=== PATIENT | female | born 1985 | race Caucasian/White ===

== ENCOUNTER 2017-11-15 21:55 | Emergency (ER) | payer MEDICAID, OTHER ==
[2017-11-15 22:46] LABS: URINE BLOOD (Dip) POC Trace-lysed (NEGATIVE); URINE GLUCOSE (Dip) POC Negative (NEGATIVE); URINE KETONES (Dip) POC 1+ (NEGATIVE); URINE LEUKOCYTE EST (Dip) POC Negative (NEGATIVE); URINE NITRITE (Dip) POC Negative (NEGATIVE); URINE TOTAL PROTEIN POC Negative (NEGATIVE)
[2017-11-15] MEDS: IBUPROFEN 800 MG TAB PO (22:53)
== END 2017-11-15 23:22 | disposition home or self-care (01) ==
LOC: FTE 21:55
DX: B34.9 Viral infection, unspecified (principal)
CPT/HCPCS: 71045; 81003; 81025; 99283-25

== ENCOUNTER 2017-11-18 20:03 | Inpatient (IN) | payer MEDICAID ==
[2017-11-18] MEDS: SODIUM CHLORIDE 0.9% 1L BAG IV* (20:41)
[2017-11-18] MEDS: CEFEPIME 2GM/50 ML (PMX) 50 ML IVPB (20:44)
[2017-11-18 20:48] LABS: WHITE BLOOD COUNT 4.5 10^3/ul (4.8-10.8)
[2017-11-18 20:48] LABS: ABNORMAL IP MESSAGE 1; HEMATOCRIT 36.3 % (37.0-47.0); HEMOGLOBIN 12.4 g/dl (12.0-16.0); MEAN CORPUSCULAR HEMOGLOBIN 29.2 pg (29.0-33.0); MEAN CORPUSCULAR HGB CONC 34.2 g/dl (32.0-37.0); MEAN CORPUSCULAR VOLUME 85.6 fl (82.0-101.0); MEAN PLATELET VOLUME 10.5 fl (7.4-10.4); PLATELET COUNT 116 10^3/UL (140-415); RED BLOOD COUNT 4.24 10^6/ul (4.20-5.40); RED CELL DISTRIBUTION WIDTH 13.4 % (11.5-14.5)
[2017-11-18 21:02] LABS: LACTIC ACID 1.3 mmol/L (0.5-2.0)
[2017-11-18 21:03] LABS: ALANINE AMINOTRANSFERASE 153 IU/L (13-69); ALBUMIN 3.5 g/dl (3.3-4.9); ALBUMIN/GLOBULIN RATIO 1.06; ALKALINE PHOSPHATASE 163 IU/L (42-121); ANION GAP 12 (8-16); ASPARTATE AMINO TRANSFERASE 185 IU/L (15-46); BILIRUBIN,INDIRECT 0.4 mg/dl (0-1.1); BILIRUBIN,TOTAL 0.4 mg/dl (0.2-1.3); BLOOD UREA NITROGEN 8 mg/dl (7-20); CALCIUM 8.5 mg/dl (8.4-10.2); CARBON DIOXIDE 22 mmol/L (21-31); CHLORIDE 103 mmol/L (97-110); CREATININE 0.61 mg/dl (0.44-1.00); GLUCOSE 131 mg/dl (70-220); POTASSIUM 3.8 mmol/L (3.5-5.1); SODIUM 133 mmol/L (135-144); TOTAL PROTEIN 6.8 g/dl (6.1-8.1)
[2017-11-18 21:07] LABS: POSITIVE DIFF @See below
[2017-11-18 21:08] LABS: ADD UMIC YES; UR ASCORBIC ACID NEGATIVE (NEGATIVE); UR BACTERIA FEW /HPF (NONE SEEN); UR BILIRUBIN (Dip) NEGATIVE (NEGATIVE); UR BLOOD (Dip) 1+ mg/dL (NEGATIVE); UR CLARITY CLOUDY (CLEAR); UR COLOR YELLOW (YELLOW); UR GLUCOSE (Dip) NEGATIVE (NEGATIVE); UR KETONES (Dip) NEGATIVE (NEGATIVE); UR LEUKOCYTE ESTERASE (Dip) NEGATIVE Leu/ul (NEGATIVE); UR MUCUS FEW /HPF (NONE SEEN); UR NITRITE (Dip) NEGATIVE (NEGATIVE); UR RBC 3 /HPF (0-5); UR SPECIFIC GRAVITY (Dip) 1.014 (1.003-1.030); UR SQUAMOUS EPITHELIAL CELL MODERATE /HPF (FEW); UR TOTAL PROTEIN (Dip) 1+ mg/dl (NEGATIVE); UR UROBILINOGEN (Dip) 2+ mg/dL (NEGATIVE); UR WBC 3 /HPF (0-5)
[2017-11-18 21:09] LABS: ADD MAN DIFF? YES
[2017-11-18 22:13] LABS: BAND NEUTROPHILS #M 2.3 10^3/ul (0.0-0.6); BAND NEUTROPHILS % (M) 52 % (0-4); GIANT THROMBO% (M) 1 % (0-0); LYMPHOCYTES #M 0.4 10^3/ul (0.8-2.9); LYMPHOCYTES % (M) 11 % (15-51); MONOCYTES % (M) 2 % (0-11); MYELOCYTES % (M) 1 % (0-0); PLATELET ESTIMATE DECREASED; SEG NEUT #M 1.6 10^3/ul (1.6-7.5); SEGMENTED NEUTROPHILS (M) % 34 % (39-77); SMUDGE%M 58 % (0-0)
[2017-11-18] MEDS: KETOROLAC 30 MG INJ IV (22:16)
[2017-11-18] MEDS: ACETAMINOPHEN 325 MG TAB PO (22:16)
[2017-11-18] MEDS: AZITHROMYCIN 250 MG TAB PO (22:56)
[2017-11-18] MEDS ORDERED: DOCUSATE SODIUM 100 MG CAP PO (23:00)
[2017-11-18] MEDS ORDERED: NACL 0.9% 3 ML SYG IV (23:00)
[2017-11-18] MEDS ORDERED: BISACODYL (EC) 5 MG TAB PO (23:00)
[2017-11-18] MEDS ORDERED: morphine 2 MG INJ IV (23:00)
[2017-11-18 23:25] LABS: HAAIG REFLEX REFLEX FILED
[2017-11-18] MEDS ORDERED: VANCOMYCIN IV PER PHARMACY XX (23:30)
[2017-11-18] MEDS: SOD CHLORIDE 0.9% 500 ML IV (23:45)
[2017-11-18 23:47] LABS: TROPONIN-I < 0.012 ng/ml (0.000-0.120)
[2017-11-19 00:04] LABS: HEPATITIS B SURFACE ANTIGEN NEGATIVE (NEGATIVE)
[2017-11-19 00:21] LABS: HEPATITIS B CORE ANTIBODY NEGATIVE (NEGATIVE); HEPATITIS C VIRAL ANTIBODY NEGATIVE (NEGATIVE)
[2017-11-19] MEDS: SOD CHLORIDE 0.9% 1,000 ML IV ×5 (00:56→16:41)
[2017-11-19] MEDS ORDERED: NORepinephrine 8MG/250 ML (PMX 250 ML IV (01:00)
[2017-11-19] MEDS: PIPER-TAZO 3.375 GM IV (PMX) 100 ML IVPB ×4 (02:10→17:40)
[2017-11-19 02:16] LABS: HEPATITIS B SURFACE ANTIBODY NEGATIVE (NEGATIVE)
[2017-11-19] MEDS: LIDOCAINE 1% (MPF) 5 ML VIAL SC (03:00)
[2017-11-19] MEDS: VANCOMYCIN 1 GM in 250 ML IVPB (03:12)
[2017-11-19 05:50] LABS: ABNORMAL IP MESSAGE 1; HEMATOCRIT 32.3 % (37.0-47.0); MEAN CORPUSCULAR HEMOGLOBIN 29.4 pg (29.0-33.0); MEAN CORPUSCULAR HGB CONC 34.1 g/dl (32.0-37.0); MEAN CORPUSCULAR VOLUME 86.4 fl (82.0-101.0); MEAN PLATELET VOLUME 10.4 fl (7.4-10.4); PLATELET COUNT 98 10^3/UL (140-415); RED BLOOD COUNT 3.74 10^6/ul (4.20-5.40); RED CELL DISTRIBUTION WIDTH 13.7 % (11.5-14.5)
[2017-11-19 05:53] LABS: ADD MAN DIFF? YES; POSITIVE DIFF @See below
[2017-11-19] MEDS: ACETAMINOPHEN 325 MG TAB PO ×3 (06:19→22:49)
[2017-11-19 06:28] LABS: LACTIC ACID 1.1 mmol/L (0.5-2.0)
[2017-11-19 06:31] LABS: ALANINE AMINOTRANSFERASE 184 IU/L (13-69); ALBUMIN 2.4 g/dl (3.3-4.9); ALBUMIN/GLOBULIN RATIO 0.85; ALKALINE PHOSPHATASE 134 IU/L (42-121); ANION GAP 11 (8-16); ASPARTATE AMINO TRANSFERASE 244 IU/L (15-46); BILIRUBIN,INDIRECT 0.3 mg/dl (0-1.1); BILIRUBIN,TOTAL 0.4 mg/dl (0.2-1.3); BLOOD UREA NITROGEN 4 mg/dl (7-20); CALCIUM 6.8 mg/dl (8.4-10.2); CARBON DIOXIDE 19 mmol/L (21-31); CHLORIDE 112 mmol/L (97-110); CHOL/HDL RATIO 3.9 RATIO; CHOLESTEROL 75 mg/dl (100-200); CREATININE 0.52 mg/dl (0.44-1.00); GLUCOSE 100 mg/dl (70-220); HDL CHOLESTEROL 19 mg/dl (34-82); LDL CHOLESTEROL,CALCULATED 35 mg/dl; MAGNESIUM 1.4 mg/dl (1.7-2.5); POTASSIUM 3.6 mmol/L (3.5-5.1); SODIUM 138 mmol/L (135-144); TOTAL PROTEIN 5.2 g/dl (6.1-8.1); TRIGLYCERIDES 105 mg/dl (0-149)
[2017-11-19 06:46] LABS: HEMOGLOBIN A1C 5.8 % (0-5.9)
[2017-11-19] MEDS: SOD CHLORIDE 0.9% 500 ML IV (07:10)
[2017-11-19 07:24] LABS: ANISOCYTOSIS 1+ (0-0); BAND NEUTROPHILS #M 3.8 10^3/ul (0.0-0.6); BAND NEUTROPHILS % (M) 55 % (0-4); BASOPHILS % (M) 1 % (0-2); GIANT THROMBO% (M) 1 % (0-0); LYMPHOCYTES #M 0.4 10^3/ul (0.8-2.9); LYMPHOCYTES % (M) 7 % (15-51); MONOCYTE #M 0.2 10^3/ul (0.3-0.9); MONOCYTES % (M) 3 % (0-11); PLATELET ESTIMATE DECREASED; POIKILOCYTOSIS 2+ (0-0); REACTIVE LYMPHOCYTES #M 0.2 10^3/ul (0.0-0.0); REACTIVE LYMPHOCYTES% (M) 3 % (0-0); SEG NEUT #M 2.4 10^3/ul (1.6-7.5); SEGMENTED NEUTROPHILS (M) % 31 % (39-77); SMUDGE%M 2 % (0-0)
[2017-11-19] MEDS: MAGNESIUM SULFATE 2 GM/50 ML 50 ML IVPB (10:43)
[2017-11-19] MEDS ORDERED: VANCOMYCIN 750 MG in SOD CHLORIDE 0.9% 150 ML IVPB ×2 (11:00→16:00)
[2017-11-19] MEDS: DOCUSATE SODIUM 100 MG CAP PO ×2 (11:10→22:49)
[2017-11-19] MEDS: CALCIUM GLUCONATE 10% 1 GM in DEXTROSE 5% 100 ML IVPB (13:13)
[2017-11-19] MEDS: FISH OIL 1,000 MG CAP PO (21:26)
[2017-11-19] MEDS ORDERED: VANCOMYCIN IV PER PHARMACY XX (23:00)
[2017-11-19] MEDS: IBUPROFEN 600 MG TAB PO (23:25)
[2017-11-20] MEDS: PIPER-TAZO 3.375 GM IV (PMX) 100 ML IVPB ×4 (00:30→17:58)
[2017-11-20] MEDS: VANCOMYCIN 750 MG in SOD CHLORIDE 0.9% 150 ML IVPB ×3 (01:02→18:23)
[2017-11-20] MEDS: SOD CHLORIDE 0.9% 1,000 ML IV ×2 (04:41→14:40)
[2017-11-20 06:00] LABS: WHITE BLOOD COUNT 5.8 10^3/ul (4.8-10.8)
[2017-11-20 06:00] LABS: ABNORMAL IP MESSAGE 1; HEMATOCRIT 31.5 % (37.0-47.0); MEAN CORPUSCULAR HEMOGLOBIN 29.9 pg (29.0-33.0); MEAN CORPUSCULAR HGB CONC 34.9 g/dl (32.0-37.0); MEAN CORPUSCULAR VOLUME 85.6 fl (82.0-101.0); MEAN PLATELET VOLUME 10.7 fl (7.4-10.4); PLATELET COUNT 97 10^3/UL (140-415); RED BLOOD COUNT 3.68 10^6/ul (4.20-5.40)
[2017-11-20 06:02] LABS: ADD MAN DIFF? YES; POSITIVE DIFF @See below
[2017-11-20 06:19] LABS: IRON 26 ug/dl (35-150)
[2017-11-20 06:28] LABS: % IRON SATURATION 12 % SAT (22-52); TOTAL IRON BINDING CAPACITY 225 ug/dl (241-421)
[2017-11-20 06:34] LABS: ALANINE AMINOTRANSFERASE 317 IU/L (13-69); ALBUMIN 2.3 g/dl (3.3-4.9); ALBUMIN/GLOBULIN RATIO 0.88; ALKALINE PHOSPHATASE 115 IU/L (42-121); ANION GAP 7 (8-16); ASPARTATE AMINO TRANSFERASE 424 IU/L (15-46); BILIRUBIN,INDIRECT 0.3 mg/dl (0-1.1); BILIRUBIN,TOTAL 0.3 mg/dl (0.2-1.3); BLOOD UREA NITROGEN 5 mg/dl (7-20); CALCIUM 7.4 mg/dl (8.4-10.2); CARBON DIOXIDE 22 mmol/L (21-31); CHLORIDE 111 mmol/L (97-110); GLUCOSE 92 mg/dl (70-220); MAGNESIUM 1.8 mg/dl (1.7-2.5); POTASSIUM 3.4 mmol/L (3.5-5.1); SODIUM 137 mmol/L (135-144); TOTAL PROTEIN 4.9 g/dl (6.1-8.1)
[2017-11-20 07:54] LABS: ANISOCYTOSIS 2+ (0-0); BAND NEUTROPHILS #M 2.2 10^3/ul (0.0-0.6); BAND NEUTROPHILS % (M) 38 % (0-4); LYMPHOCYTES #M 0.6 10^3/ul (0.8-2.9); LYMPHOCYTES % (M) 11 % (15-51); MONOCYTE #M 0.2 10^3/ul (0.3-0.9); MONOCYTES % (M) 4 % (0-11); PLATELET ESTIMATE DECREASED; POIKILOCYTOSIS 3+ (0-0); POLYCHROMASIA 3+ (0-0); REACTIVE LYMPHOCYTES #M 0.2 10^3/ul (0.0-0.0); REACTIVE LYMPHOCYTES% (M) 5 % (0-0); SEG NEUT #M 2.6 10^3/ul (1.6-7.5); SEGMENTED NEUTROPHILS (M) % 42 % (39-77); SMUDGE%M 2 % (0-0)
[2017-11-20] MEDS: FISH OIL 1,000 MG CAP PO ×2 (08:08→20:23)
[2017-11-20] MEDS: POTASSIUM CHLORIDE (SR) 20 MEQ TAB PO ×2 (08:09→11:02)
[2017-11-20 09:05] LABS: FOLATE 10.2 ng/ml (2.8-20.0)
[2017-11-20] MEDS ORDERED: ALBUTEROL 0.083% (NEB) 2.5 MG/3 ML AMP HHN (10:30)
[2017-11-20 10:39] LABS: LIPASE 112 U/L (23-300)
[2017-11-20] MEDS: DOCUSATE SODIUM 100 MG CAP PO ×3 (11:00→22:54)
[2017-11-20] MEDS: ACETAMINOPHEN 325 MG TAB PO ×2 (11:27→20:23)
[2017-11-20] MEDS: SOD CHLORIDE 0.9% 500 ML IV (12:37)
[2017-11-20 13:05] LABS: HIV 1&2 ANTIBODY NEGATIVE (NEGATIVE)
[2017-11-20] MEDS: LEVOFLOXACIN 500MG/D5W (PMX) 100 ML IVPB (13:19)
[2017-11-20] MEDS: POTASSIUM CHLORIDE 100 ML IVPB (14:40)
[2017-11-20] MEDS ORDERED: morphine LIQ (10 MG/5 ML) CUP PO (15:30)
[2017-11-20] MEDS: SOD FERRIC GLUC COMPLX 125 MG in SOD CHLORIDE 0.9% 100 ML IVPB (16:44)
[2017-11-21 00:07] LABS: VANCOMYCIN,TROUGH 9.6 ug/ml (10.0-20.0)
[2017-11-21] MEDS: VANCOMYCIN 1 GM 250 ML IVPB ×3 (00:27→16:37)
[2017-11-21] MEDS: PIPER-TAZO 3.375 GM IV (PMX) 100 ML IVPB ×4 (00:28→17:38)
[2017-11-21] MEDS: SOD CHLORIDE 0.9% 1,000 ML IV ×2 (00:52→11:29)
[2017-11-21] MEDS: SOD CHLORIDE 0.9% 100 ML (04:12)
[2017-11-21] MEDS: IOHEXOL 300MG/ML 150 ML BTL (04:22)
[2017-11-21 06:27] LABS: WHITE BLOOD COUNT 7.6 10^3/ul (4.8-10.8)
[2017-11-21 06:27] LABS: HEMOGLOBIN 11.3 g/dl (12.0-16.0); MEAN CORPUSCULAR HEMOGLOBIN 30.1 pg (29.0-33.0); MEAN CORPUSCULAR HGB CONC 35.3 g/dl (32.0-37.0); MEAN CORPUSCULAR VOLUME 85.3 fl (82.0-101.0); MEAN PLATELET VOLUME 10.8 fl (7.4-10.4); PLATELET COUNT 107 10^3/UL (140-415); RED BLOOD COUNT 3.75 10^6/ul (4.20-5.40); RED CELL DISTRIBUTION WIDTH 14.2 % (11.5-14.5)
[2017-11-21 06:36] LABS: ADD MAN DIFF? YES; POSITIVE DIFF @See below
[2017-11-21 06:38] LABS: ALANINE AMINOTRANSFERASE 309 IU/L (13-69); ALBUMIN 2.5 g/dl (3.3-4.9); ALBUMIN/GLOBULIN RATIO 0.83; ALKALINE PHOSPHATASE 126 IU/L (42-121); ANION GAP 13 (8-16); ASPARTATE AMINO TRANSFERASE 365 IU/L (15-46); BILIRUBIN,INDIRECT 0.3 mg/dl (0-1.1); BILIRUBIN,TOTAL 0.3 mg/dl (0.2-1.3); BLOOD UREA NITROGEN 5 mg/dl (7-20); CALCIUM 8.2 mg/dl (8.4-10.2); CARBON DIOXIDE 23 mmol/L (21-31); CHLORIDE 105 mmol/L (97-110); CREATININE 0.52 mg/dl (0.44-1.00); GLUCOSE 82 mg/dl (70-220); POTASSIUM 3.5 mmol/L (3.5-5.1); SODIUM 137 mmol/L (135-144); TOTAL PROTEIN 5.5 g/dl (6.1-8.1)
[2017-11-21 07:58] LABS: BAND NEUTROPHILS #M 1.2 10^3/ul (0.0-0.6); BAND NEUTROPHILS % (M) 17 % (0-4); LYMPHOCYTES #M 0.6 10^3/ul (0.8-2.9); LYMPHOCYTES % (M) 8 % (15-51); MONOCYTE #M 0.3 10^3/ul (0.3-0.9); MONOCYTES % (M) 5 % (0-11); PLATELET ESTIMATE DECREASED; SEG NEUT #M 5.4 10^3/ul (1.6-7.5); SEGMENTED NEUTROPHILS (M) % 70 % (39-77); SMUDGE%M 25 % (0-0)
[2017-11-21] MEDS: FISH OIL 1,000 MG CAP PO ×2 (08:28→21:33)
[2017-11-21] MEDS: DOCUSATE SODIUM 100 MG CAP PO ×2 (11:00→23:00)
[2017-11-21] MEDS: LEVOFLOXACIN 500MG/D5W (PMX) 100 ML IVPB (11:29)
[2017-11-21] MEDS: ACETAMINOPHEN 325 MG TAB PO (11:37)
[2017-11-21] MEDS: VORICONAZOLE 200 MG TAB PO ×2 (13:15→21:33)
[2017-11-21 13:16] LABS: INR 0.96; PROTIME 12.9 Sec (11.9-14.9)
[2017-11-21 13:17] LABS: PARTIAL THROMBOPLASTIN TIME 35.7 Sec (25.0-35.0)
[2017-11-21] MEDS: SOD FERRIC GLUC COMPLX 125 MG in SOD CHLORIDE 0.9% 100 ML IVPB (16:37)
[2017-11-22] MEDS: PIPER-TAZO 3.375 GM IV (PMX) 100 ML IVPB ×4 (00:32→19:58)
[2017-11-22] MEDS: SOD CHLORIDE 0.9% 1,000 ML IV ×4 (00:34→21:59)
[2017-11-22] MEDS: VANCOMYCIN 1 GM 250 ML IVPB ×2 (01:34→08:05)
[2017-11-22 05:01] LABS: AADO2 Arterial 587.5 mmHg (7.0-24.0); Allen Test ACCEPTAB; Arterial Base Excess -2.2 mmol/L (-3.0-3); Arterial Blood Gas Oxygen Sat 96.3 mmHG (95.0-98.0); Arterial COHb 0.2 % (0.0-3.0); Arterial Fraction of Oxyhgb 95.9 % (93.0-99.0); Arterial HCO3 22.1 mmol/L (22.0-26.0); Arterial MetHb 0.2 % (0.0-1.5); Arterial pCO2 36.1 mmhg (35-45); MODE MASK - NRB; Site Right Radial
[2017-11-22 05:23] LABS: ADD MAN DIFF? NO
[2017-11-22 05:27] LABS: BASOPHILS % 0.1 % (0.0-2.0); HEMATOCRIT 29.9 % (37.0-47.0); HEMOGLOBIN 10.2 g/dl (12.0-16.0); LYMPHOCYTES # 1.9 10^3/ul (0.8-2.9); LYMPHOCYTES % 24.7 % (15.0-51.0); MEAN CORPUSCULAR HEMOGLOBIN 28.8 pg (29.0-33.0); MEAN CORPUSCULAR HGB CONC 34.1 g/dl (32.0-37.0); MEAN CORPUSCULAR VOLUME 84.5 fl (82.0-101.0); MEAN PLATELET VOLUME 10.7 fl (7.4-10.4); MONOCYTE # 0.4 10^3/ul (0.3-0.9); MONOCYTES % 5.6 % (0.0-11.0); NEUTROPHIL # 5.4 10^3/ul (1.6-7.5); NEUTROPHILS % 68.8 % (39.0-77.0); PLATELET COUNT 135 10^3/UL (140-415); RED BLOOD COUNT 3.54 10^6/ul (4.20-5.40); RED CELL DISTRIBUTION WIDTH 14.4 % (11.5-14.5)
[2017-11-22 05:27] LABS: WHITE BLOOD COUNT 7.9 10^3/ul (4.8-10.8)
[2017-11-22 07:53] LABS: VANCOMYCIN,TROUGH 8.8 ug/ml (10.0-20.0)
[2017-11-22] MEDS: VORICONAZOLE 200 MG TAB PO ×2 (08:05→21:49)
[2017-11-22] MEDS: FISH OIL 1,000 MG CAP PO ×2 (08:05→21:49)
[2017-11-22] MEDS: LEVOFLOXACIN 500MG/D5W (PMX) 100 ML IVPB (10:51)
[2017-11-22] MEDS: DOCUSATE SODIUM 100 MG CAP PO ×2 (11:00→21:55)
[2017-11-22] MEDS: ALBUTEROL/IPRATROPIUM (NEB) 3 ML AMP HHN ×2 (13:37→20:33)
[2017-11-22] MEDS ORDERED: VANCOMYCIN 1.5 GM in SOD CHLORIDE 0.9% 250 ML IVPB (16:00)
[2017-11-22] MEDS: SOD FERRIC GLUC COMPLX 125 MG in SOD CHLORIDE 0.9% 100 ML IVPB (17:19)
[2017-11-22] MEDS: DOXYCYCLINE 100 MG in SOD CHLORIDE 0.9% 250 ML IVPB (21:49)
[2017-11-22] MEDS ORDERED: VANCOMYCIN IV PER PHARMACY XX (22:30)
[2017-11-22] MEDS ORDERED: CEFTRIAXONE 1,000 MG in SOD CHLORIDE 0.9% 50 ML IVPB (22:30)
[2017-11-22] MEDS: CEFTRIAXONE 1 GM/50 ML (PMX) 50 ML IVPB (23:37)
[2017-11-23] MEDS: VANCOMYCIN 1 GM 250 ML IVPB ×2 (00:11→08:07)
[2017-11-23] MEDS: ALBUTEROL/IPRATROPIUM (NEB) 3 ML AMP HHN ×4 (01:20→19:52)
[2017-11-23] MEDS: SOD CHLORIDE 0.9% 1,000 ML IV ×3 (02:52→22:43)
[2017-11-23 06:25] LABS: ADD MAN DIFF? NO
[2017-11-23 06:59] LABS: WHITE BLOOD COUNT 6.4 10^3/ul (4.8-10.8)
[2017-11-23 06:59] LABS: BASOPHILS % 0.3 % (0.0-2.0); EOSINOPHILS % 0.2 % (0.0-7.0); HEMATOCRIT 28.2 % (37.0-47.0); HEMOGLOBIN 9.7 g/dl (12.0-16.0); LYMPHOCYTES # 2.4 10^3/ul (0.8-2.9); LYMPHOCYTES % 37.9 % (15.0-51.0); MEAN CORPUSCULAR HEMOGLOBIN 28.9 pg (29.0-33.0); MEAN CORPUSCULAR HGB CONC 34.4 g/dl (32.0-37.0); MEAN CORPUSCULAR VOLUME 83.9 fl (82.0-101.0); MEAN PLATELET VOLUME 10.3 fl (7.4-10.4); MONOCYTE # 0.4 10^3/ul (0.3-0.9); MONOCYTES % 6.9 % (0.0-11.0); NEUTROPHIL # 3.5 10^3/ul (1.6-7.5); NEUTROPHILS % 53.9 % (39.0-77.0); PLATELET COUNT 177 10^3/UL (140-415); RED BLOOD COUNT 3.36 10^6/ul (4.20-5.40); RED CELL DISTRIBUTION WIDTH 14.5 % (11.5-14.5)
[2017-11-23 07:27] LABS: ALANINE AMINOTRANSFERASE 403 IU/L (13-69); ALBUMIN 2.4 g/dl (3.3-4.9); ALKALINE PHOSPHATASE 142 IU/L (42-121); ASPARTATE AMINO TRANSFERASE 540 IU/L (15-46); BILIRUBIN,INDIRECT 0.1 mg/dl (0-1.1); BILIRUBIN,TOTAL 0.1 mg/dl (0.2-1.3); TOTAL PROTEIN 5.2 g/dl (6.1-8.1)
[2017-11-23 07:33] LABS: ANION GAP 14 (8-16); BLOOD UREA NITROGEN 5 mg/dl (7-20); CALCIUM 8.1 mg/dl (8.4-10.2); CARBON DIOXIDE 23 mmol/L (21-31); CHLORIDE 109 mmol/L (97-110); CREATININE 0.51 mg/dl (0.44-1.00); GLUCOSE 81 mg/dl (70-220); MAGNESIUM 1.6 mg/dl (1.7-2.5); PHOSPHORUS 2.5 mg/dl (2.5-4.9); SODIUM 143 mmol/L (135-144)
[2017-11-23] MEDS: FISH OIL 1,000 MG CAP PO ×2 (08:05→20:39)
[2017-11-23 08:39] LABS: AADO2 Arterial 216.5 mmHg (7.0-24.0); Allen Test ACCEPTAB; Arterial Base Excess -1.9 mmol/L (-3.0-3); Arterial Blood Gas Oxygen Sat 97.4 mmHG (95.0-98.0); Arterial COHb 0.3 % (0.0-3.0); Arterial HCO3 21.4 mmol/L (22.0-26.0); Arterial MetHb 0.1 % (0.0-1.5); Arterial Total Hemglobin 9.8 g/dl (12.0-18.0); Arterial pCO2 31.1 mmhg (35-45); MODE HFNC; Site Right Radial
[2017-11-23] MEDS ORDERED: POTASSIUM CHLORIDE 100 ML IVPB (10:30)
[2017-11-23] MEDS: DOCUSATE SODIUM 100 MG CAP PO ×2 (11:00→22:35)
[2017-11-23] MEDS: POTASSIUM CHLORIDE (SR) 20 MEQ TAB PO (11:03)
[2017-11-23] MEDS: MAGNESIUM SULFATE 2 GM/50 ML 50 ML IVPB (11:03)
[2017-11-23] MEDS: LEVOFLOXACIN 750MG/D5W (PMX) 150 ML IVPB (11:58)
[2017-11-23 12:00] LABS: PROTIME 12.2 Sec (11.9-14.9)
[2017-11-23 12:07] LABS: PARTIAL THROMBOPLASTIN TIME 33.4 Sec (25.0-35.0)
[2017-11-23] MEDS ORDERED: MIDAZOLAM 1 MG/ML 2 ML INJ (13:26)
[2017-11-23] MEDS ORDERED: morphine 4 MG/ML VIAL (13:27)
[2017-11-23] MEDS ORDERED: LIDOCAINE 1% (MDV) 10 ML INJ ×2 (13:27→13:30)
[2017-11-23] MEDS: HYDROmorphONE 1 MG/ML SYG IV ×2 (14:27→20:03)
[2017-11-23] MEDS ORDERED: HYDROmorphONE 1 MG/ML SYG IV (14:30)
[2017-11-23] MEDS: LIDOCAINE 1% (MDV) 10 ML INJ INJ (15:50)
[2017-11-23] MEDS: morphine 4 MG/ML VIAL IV (15:51)
[2017-11-23] MEDS: MIDAZOLAM 1 MG/ML 2 ML INJ IV (15:52)
[2017-11-23] MEDS: VANCOMYCIN 1.25 GM in SOD CHLORIDE 0.9% 250 ML IVPB ×2 (16:35→23:41)
[2017-11-23] MEDS ORDERED: LORAZEPAM 0.5 MG TAB PO (17:00)
[2017-11-23 17:15] LABS: FLD MN% 49.9 %; FLD PMN% 50.1 %; FLD RBC 8000 /uL; FLD WBC 576 /cmm
[2017-11-23 17:31] LABS: FLD CLARITY HAZY; FLD COLOR YELLOW
[2017-11-23 17:31] LABS: FLD TYPE PLEURAL
[2017-11-23] MEDS: OXYCODONE/ACETAMINOPHEN (5/325) TAB PO ×2 (17:32→23:42)
[2017-11-23] MEDS: CEFTRIAXONE 1 GM/50 ML (PMX) 50 ML IVPB (22:35)
[2017-11-24] MEDS: ALBUTEROL/IPRATROPIUM (NEB) 3 ML AMP HHN ×4 (01:30→19:31)
[2017-11-24 06:14] LABS: ADD MAN DIFF? NO
[2017-11-24] MEDS: OXYCODONE/ACETAMINOPHEN (5/325) TAB PO ×4 (06:19→23:55)
[2017-11-24 06:29] LABS: WHITE BLOOD COUNT 7.4 10^3/ul (4.8-10.8)
[2017-11-24 06:29] LABS: BASOPHILS % 0.5 % (0.0-2.0); EOSINOPHILS # 0.1 10^3/ul (0.0-0.5); EOSINOPHILS % 1.1 % (0.0-7.0); HEMATOCRIT 30.6 % (37.0-47.0); HEMOGLOBIN 10.4 g/dl (12.0-16.0); LYMPHOCYTES # 2.3 10^3/ul (0.8-2.9); LYMPHOCYTES % 30.6 % (15.0-51.0); MEAN CORPUSCULAR HEMOGLOBIN 29.5 pg (29.0-33.0); MEAN CORPUSCULAR VOLUME 86.7 fl (82.0-101.0); MEAN PLATELET VOLUME 10.1 fl (7.4-10.4); MONOCYTE # 0.6 10^3/ul (0.3-0.9); MONOCYTES % 8.4 % (0.0-11.0); NEUTROPHIL # 4.3 10^3/ul (1.6-7.5); NEUTROPHILS % 58.3 % (39.0-77.0); PLATELET COUNT 211 10^3/UL (140-415); RED BLOOD COUNT 3.53 10^6/ul (4.20-5.40); RED CELL DISTRIBUTION WIDTH 14.8 % (11.5-14.5)
[2017-11-24 07:09] LABS: ANION GAP 13 (8-16); BLOOD UREA NITROGEN 6 mg/dl (7-20); CARBON DIOXIDE 24 mmol/L (21-31); CHLORIDE 108 mmol/L (97-110); CREATININE 0.44 mg/dl (0.44-1.00); GLUCOSE 87 mg/dl (70-220); MAGNESIUM 1.8 mg/dl (1.7-2.5); PHOSPHORUS 2.7 mg/dl (2.5-4.9); SODIUM 141 mmol/L (135-144)
[2017-11-24] MEDS: FISH OIL 1,000 MG CAP PO ×2 (08:39→20:41)
[2017-11-24] MEDS: VANCOMYCIN 1.25 GM in SOD CHLORIDE 0.9% 250 ML IVPB ×2 (08:40→17:35)
[2017-11-24 08:44] LABS: AADO2 Arterial 126.1 mmHg (7.0-24.0); Allen Test ACCEPTAB; Arterial Base Excess -2.2 mmol/L (-3.0-3); Arterial Blood Gas Oxygen Sat 95.7 mmHG (95.0-98.0); Arterial COHb 0.2 % (0.0-3.0); Arterial Fraction of Oxyhgb 95.5 % (93.0-99.0); Arterial HCO3 22.8 mmol/L (22.0-26.0); Arterial MetHb 0 % (0.0-1.5); Arterial Total Hemglobin 11.5 g/dl (12.0-18.0); Arterial pCO2 39.8 mmhg (35-45); MODE NASAL CANNULA; Site Right Radial
[2017-11-24] MEDS: SOD CHLORIDE 0.9% 1,000 ML IV ×2 (11:45→17:35)
[2017-11-24] MEDS: DOCUSATE SODIUM 100 MG CAP PO ×2 (11:49→23:00)
[2017-11-24] MEDS: LEVOFLOXACIN 750MG/D5W (PMX) 150 ML IVPB (11:49)
[2017-11-24] MEDS: ONDANSETRON 4 MG INJ IV (13:47)
[2017-11-24] MEDS: CEFTRIAXONE 1 GM/50 ML (PMX) 50 ML IVPB (23:24)
[2017-11-24 23:37] LABS: VANCOMYCIN,TROUGH 18.7 ug/ml (10.0-20.0)
[2017-11-25] MEDS: VANCOMYCIN 1.25 GM in SOD CHLORIDE 0.9% 250 ML IVPB ×2 (00:13→08:35)
[2017-11-25] MEDS: ALBUTEROL/IPRATROPIUM (NEB) 3 ML AMP HHN ×4 (01:14→20:35)
[2017-11-25] MEDS: SOD CHLORIDE 0.9% 1,000 ML IV ×2 (04:05→14:53)
[2017-11-25 05:45] LABS: ADD MAN DIFF? NO
[2017-11-25 05:54] LABS: WHITE BLOOD COUNT 5.9 10^3/ul (4.8-10.8)
[2017-11-25 05:54] LABS: BASOPHILS % 0.3 % (0.0-2.0); EOSINOPHILS # 0.1 10^3/ul (0.0-0.5); EOSINOPHILS % 1.9 % (0.0-7.0); HEMOGLOBIN 9.7 g/dl (12.0-16.0); LYMPHOCYTES # 2.2 10^3/ul (0.8-2.9); LYMPHOCYTES % 37.4 % (15.0-51.0); MEAN CORPUSCULAR HEMOGLOBIN 29.8 pg (29.0-33.0); MEAN CORPUSCULAR HGB CONC 34.6 g/dl (32.0-37.0); MEAN CORPUSCULAR VOLUME 86.2 fl (82.0-101.0); MONOCYTE # 0.5 10^3/ul (0.3-0.9); NEUTROPHILS % 51.2 % (39.0-77.0); PLATELET COUNT 250 10^3/UL (140-415); RED BLOOD COUNT 3.25 10^6/ul (4.20-5.40); RED CELL DISTRIBUTION WIDTH 14.7 % (11.5-14.5)
[2017-11-25 06:26] LABS: ANION GAP 13 (8-16); BLOOD UREA NITROGEN 2 mg/dl (7-20); CARBON DIOXIDE 26 mmol/L (21-31); CHLORIDE 106 mmol/L (97-110); CREATININE 0.44 mg/dl (0.44-1.00); GLUCOSE 79 mg/dl (70-220); POTASSIUM 3.3 mmol/L (3.5-5.1); SODIUM 142 mmol/L (135-144)
[2017-11-25] MEDS: OXYCODONE/ACETAMINOPHEN (5/325) TAB PO ×2 (06:38→11:12)
[2017-11-25] MEDS: POTASSIUM CHLORIDE (SR) 20 MEQ TAB PO (07:14)
[2017-11-25] MEDS: DOCUSATE SODIUM 100 MG CAP PO ×2 (11:08→23:00)
[2017-11-25] MEDS: FISH OIL 1,000 MG CAP PO ×2 (11:08→20:54)
[2017-11-25] MEDS: LEVOFLOXACIN 750MG/D5W (PMX) 150 ML IVPB (11:08)
[2017-11-25] MEDS ORDERED: VANCOMYCIN 750 MG in SOD CHLORIDE 0.9% 150 ML IVPB (18:00)
[2017-11-25] MEDS: HYDROCODONE/APAP (5/325) TAB PO (20:54)
[2017-11-25] MEDS: CEFTRIAXONE 1 GM/50 ML (PMX) 50 ML IVPB (22:04)
[2017-11-26] MEDS: ALBUTEROL/IPRATROPIUM (NEB) 3 ML AMP HHN ×4 (01:34→20:16)
[2017-11-26] MEDS: SOD CHLORIDE 0.9% 1,000 ML IV ×3 (03:06→20:52)
[2017-11-26] MEDS: LEVOFLOXACIN 500 MG TAB PO (05:42)
[2017-11-26 06:34] LABS: ADD MAN DIFF? NO
[2017-11-26 06:39] LABS: WHITE BLOOD COUNT 6.6 10^3/ul (4.8-10.8)
[2017-11-26 06:39] LABS: BASOPHILS % 0.5 % (0.0-2.0); EOSINOPHILS # 0.1 10^3/ul (0.0-0.5); HEMOGLOBIN 11.1 g/dl (12.0-16.0); LYMPHOCYTES # 2.6 10^3/ul (0.8-2.9); LYMPHOCYTES % 39.7 % (15.0-51.0); MEAN CORPUSCULAR HEMOGLOBIN 29.3 pg (29.0-33.0); MEAN CORPUSCULAR HGB CONC 34.7 g/dl (32.0-37.0); MEAN CORPUSCULAR VOLUME 84.4 fl (82.0-101.0); MONOCYTE # 0.7 10^3/ul (0.3-0.9); MONOCYTES % 10.2 % (0.0-11.0); NEUTROPHIL # 3.1 10^3/ul (1.6-7.5); NEUTROPHILS % 46.4 % (39.0-77.0); PLATELET COUNT 330 10^3/UL (140-415); RED BLOOD COUNT 3.79 10^6/ul (4.20-5.40); RED CELL DISTRIBUTION WIDTH 14.9 % (11.5-14.5)
[2017-11-26 07:00] LABS: ANION GAP 13 (8-16); BLOOD UREA NITROGEN 4 mg/dl (7-20); CALCIUM 8.6 mg/dl (8.4-10.2); CARBON DIOXIDE 25 mmol/L (21-31); CHLORIDE 107 mmol/L (97-110); CREATININE 0.45 mg/dl (0.44-1.00); GLUCOSE 98 mg/dl (70-220); MAGNESIUM 1.7 mg/dl (1.7-2.5); PHOSPHORUS 2.9 mg/dl (2.5-4.9); POTASSIUM 3.6 mmol/L (3.5-5.1); SODIUM 141 mmol/L (135-144)
[2017-11-26] MEDS: FISH OIL 1,000 MG CAP PO ×2 (09:00→21:05)
[2017-11-26] MEDS: DOCUSATE SODIUM 100 MG CAP PO ×2 (11:00→21:04)
[2017-11-26] MEDS: CEFTRIAXONE 1 GM/50 ML (PMX) 50 ML IVPB (21:05)
[2017-11-27] MEDS: SOD CHLORIDE 0.9% 1,000 ML IV ×3 (00:35→11:11)
[2017-11-27] MEDS: ALBUTEROL/IPRATROPIUM (NEB) 3 ML AMP HHN ×4 (01:19→19:51)
[2017-11-27] MEDS: LEVOFLOXACIN 500 MG TAB PO (05:26)
[2017-11-27] MEDS: HYDROCODONE/APAP (5/325) TAB PO (05:31)
[2017-11-27 06:52] LABS: ADD MAN DIFF? NO; BASOPHILS % 0.6 % (0.0-2.0); EOSINOPHILS # 0.1 10^3/ul (0.0-0.5); EOSINOPHILS % 1.8 % (0.0-7.0); HEMATOCRIT 34.5 % (37.0-47.0); HEMOGLOBIN 11.4 g/dl (12.0-16.0); LYMPHOCYTES # 2.2 10^3/ul (0.8-2.9); LYMPHOCYTES % 33.3 % (15.0-51.0); MEAN CORPUSCULAR HEMOGLOBIN 28.7 pg (29.0-33.0); MEAN CORPUSCULAR VOLUME 86.9 fl (82.0-101.0); MEAN PLATELET VOLUME 9.6 fl (7.4-10.4); MONOCYTE # 0.8 10^3/ul (0.3-0.9); MONOCYTES % 11.7 % (0.0-11.0); NEUTROPHIL # 3.4 10^3/ul (1.6-7.5); NEUTROPHILS % 51.1 % (39.0-77.0); PLATELET COUNT 376 10^3/UL (140-415); RED BLOOD COUNT 3.97 10^6/ul (4.20-5.40); RED CELL DISTRIBUTION WIDTH 15.7 % (11.5-14.5)
[2017-11-27 06:52] LABS: WHITE BLOOD COUNT 6.7 10^3/ul (4.8-10.8)
[2017-11-27 07:26] LABS: ALANINE AMINOTRANSFERASE 264 IU/L (13-69); ALBUMIN 3.4 g/dl (3.3-4.9); ALKALINE PHOSPHATASE 164 IU/L (42-121); ANION GAP 16 (8-16); ASPARTATE AMINO TRANSFERASE 180 IU/L (15-46); BILIRUBIN,INDIRECT 0.2 mg/dl (0-1.1); BILIRUBIN,TOTAL 0.2 mg/dl (0.2-1.3); BLOOD UREA NITROGEN 8 mg/dl (7-20); CALCIUM 8.7 mg/dl (8.4-10.2); CARBON DIOXIDE 23 mmol/L (21-31); CHLORIDE 111 mmol/L (97-110); CREATININE 0.47 mg/dl (0.44-1.00); GLUCOSE 112 mg/dl (70-220); MAGNESIUM 1.8 mg/dl (1.7-2.5); POTASSIUM 3.9 mmol/L (3.5-5.1); SODIUM 146 mmol/L (135-144); TOTAL PROTEIN 6.8 g/dl (6.1-8.1)
[2017-11-27] MEDS: FISH OIL 1,000 MG CAP PO ×2 (09:27→20:45)
[2017-11-27] MEDS: DOCUSATE SODIUM 100 MG CAP PO ×3 (11:10→22:19)
[2017-11-27] MEDS: CEFTRIAXONE 1 GM/50 ML (PMX) 50 ML IVPB (22:18)
[2017-11-28] MEDS: ALBUTEROL/IPRATROPIUM (NEB) 3 ML AMP HHN ×3 (01:39→14:00)
[2017-11-28] MEDS: LEVOFLOXACIN 500 MG TAB PO (06:35)
[2017-11-28] MEDS: DOCUSATE SODIUM 100 MG CAP PO (10:52)
[2017-11-28] MEDS: FISH OIL 1,000 MG CAP PO (10:52)
== END 2017-11-28 17:05 | disposition home or self-care (01) | DRG 871 ==
LOC: ICU 11-19 16:15 → E/R 20:03 → 2NE 11-25 14:00 → ICU 22:52 → 6WM 11-19 16:15 → ICU 11-21 20:18
PROC: 0W9930Z Drainage of Right Pleural Cavity with Drainage Device, Percutaneous Approach (ICD-10-PCS; principal; 2017-11-23)
DX: A41.9 Sepsis, unspecified organism (principal); R65.21 Severe sepsis with septic shock; J18.9 Pneumonia, unspecified organism; J96.01 Acute respiratory failure with hypoxia; K72.00 Acute and subacute hepatic failure without coma; N39.0 Urinary tract infection, site not specified; J90 Pleural effusion, not elsewhere classified; E83.51 Hypocalcemia; E83.42 Hypomagnesemia; D69.6 Thrombocytopenia, unspecified; B96.89 Other specified bacterial agents as the cause of diseases classified elsewhere; E87.6 Hypokalemia; D50.9 Iron deficiency anemia, unspecified; K82.8 Other specified diseases of gallbladder
CPT/HCPCS: 36415; 36600; 71045; 71260; 76604; 76705; 80048; 80053; 80061; 80076; 80202; 81001; 82607; 82746; 82803; 83036; 83540; 83605; 83690; 83735; 84100; 84443; 84484; 84703; 85025; 85610; 85730; 86635; 86703; 86704; 86706; 86708; 86709; 86803; 87040; 87070; 87081; 87086; 87102; 87116; 87340; 88104; 88305; 89051; 93005; 93306; 94640; 94664; 96365; 96366; 96375; 99291-25